=== PATIENT | female | born 2005 | race Caucasian/White ===

== ENCOUNTER 2025-01-18 16:47 | Emergency (ER) | payer BC, SELFPAY ==
--- OUTSIDE RECORDS SUMMARY | 2025-01-18 16:49 | XMS_ITS | Patient Health Record ---
Author Organization [facility] Address [address] [place] [address] Support Name Relationship Address Phone Vesta Dean Guarantor Unknown Allergies No Known Allergies Reason For Referral No Information Medications Medication SIG (Take, Route, Frequency, Duration) Notes Start Date End Date Status Blisovi 24 Fe 1-20 MG-MCG(24) 1 tablet Orally Once a day A ctive Sertraline HCl 25 MG TAKE 1 TABLET BY [facility] EVERY DAY; Duration: 30 Active Social History Tobacco Use: Social History Observation Description Date Details (start date - stop date) Never Smoker NA - NA Sex Assigned At : Social History Observation Description Sex Assigned At Female Dont use, Tobacco Use/Smoking Question Answer Notes Are you a nonsmoker Section Notes: daily marijuana use daily marijuana use Problems Problem Type SNOMED Code ICD Code Onset Dates Problem Status W/U Status Risk Notes Problem Depression (200327828) Depression (F32.9) Active confirmed Problem Anxiety (45864255) Anxiety (F41.9) Active confirmed Plan Of Treatment No Information Insurance Providers Payer Name Payer Address Payer Phone Subscriber Number Group Number Insured Name Patient Relationship to Insured Coverage Start Date Coverage End Date [employer] [facility] Attn Claims Department [address] [place] [address] [phone] [id number] Rafal Deane Self - patient is the insured 3 [facility] Attn Claims Department [address] [place] [address] [phone] [id number] Vesta Dean Self - patient is the insured 3 Medical (General) History Surgical History Surgery Date(Month/Year)
[2025-01-18 16:53] VITALS: BP 166/87; PULSE 121; RESP 16; TEMP 36.8; O2SAT 100
--- NOTE | 2025-01-18 16:55 | ED.LOWEXIN ---
HPI - Extremity Injury (Lower) General Chief Complaint: Skin/Abscess/Foreign Body Stated Complaint: right foot toe pain Time Seen by Provider: 01/18/25 16:55 Source: patient Mode of arrival: ambulatory Limitations: no limitations History of Present Illness HPI Narrative: 19 y/o female presented for c/o 'blister' on the right foot 4th toe for about one month. Endorses tenderness and says it rubs the 5th toe. No treatment. denies redness, swelling or drainage. Reports heart rate and BP are 'always high.' Related Data Home Medications ?Medication ?Instructions ?Recorded ?Confirmed ?Last Taken ?Type No Home Medications 01/18/25 01/18/25 Unknown History Allergies Allergy/AdvReac Type Severity Reaction Status Date / Time No Known Allergies Allergy Verified 01/18/25 16:57 Review of Systems Review of Systems: CONSTITUTIONAL: Denies body aches, fever, chills CARDIOVASCULAR: Denies chest pain, palpitations, or edema. RESPIRATORY: Denies cough or dyspnea. SKIN: reports blister on toe NEUROLOGIC: Denies numbness, tingling, or weakness. All systems reviewed & are unremarkable except as noted in HPI and below PMFSH Comments At time of signature, I have reviewed and agree with nursing past medical, surgical, social and family history unless otherwise noted. Please see nursing chart for further information. There is no relevant family history pertinent to the presenting complaint Exam Narrative: GENERAL: Well-appearing CHEST: Speaks in full sentences. No respiratory distress. HEART: Regular rate and rhythm. Normal and equal peripheral pulses. EXTREMITIES: Right foot 4th toe lateral aspect with skin colored callus c/w corn noted; no surrounding erythema or swelling, no drainage. pulse palpable and equal bilaterally, skin warm, dry, pink. Capillary refill less than 3 seconds. SKIN: Warm, dry, no rash. NEURO: Alert and oriented x3. PSYCH: Normal mood and affect Course Course Emergency Course: Patient is aware of diagnosis, understands and agrees to treatment plan. Anticipatory guidance given. Patient agrees to follow-up as directed and is aware of reasons to seek care at the emergency department. Portions of this record may have been created with voice recognition software Level of Care: Express Care Visit Vital Signs Vital signs: Vital Signs Temperature 98.3 F 01/18/25 16:53 Pulse Rate 121 H 01/18/25 16:53 Respiratory Rate 16 01/18/25 16:53 Blood Pressure 166/87 H 01/18/25 16:53 Pulse Oximetry 100 01/18/25 16:53 Oxygen Delivery Room Air 01/18/25 16:53 Temperature 98.3 F 01/18/25 16:53 Pulse Rate 121 H 01/18/25 16:53 Respiratory Rate 16 01/18/25 16:53 Blood Pressure 166/87 H 01/18/25 16:53 Pulse Oximetry 100 01/18/25 16:53 Oxygen Delivery Room Air 01/18/25 16:53 Reviewed MDM - Extremity Injury (Lower) MDM Narrative Medical decision making narrative: Discussed physical exam findings c/w corn; no surrounding infection noted. Advised supportive measures and signs/symptoms to go to the ER. Pt is appropriate for outpt treatment and f/u. Differential Diagnosis Differential diagnosis: Likely other (abscess, cellulitis, corn, blister) Discharge Plan Discharge Clinical Impression: [place] of toe Patient Disposition: Home Condition: Stable Instructions: Antibiotic Form, Blister (ED) Additional Instructions: for the corn: you can wear felt pads, nonmedicated corn pads or bandages over the area You can also try toe separators or some solano's wool or mole skin between your toes Gently exfoliate with pumice stone carefully follow up with a metal or wood blocker go to the ER for worsening symptoms or concerns Patient Language: Thai Prescriptions: No Action No Home Medications Follow-up/Referrals: PHYSICIAN,ADMITTING INTERVIEWER [Primary Care Provider, Internal Medicine]
== END 2025-01-18 17:11 | disposition home or self-care (01) ==
PROVIDERS: Emergency Provider Nurse Practitioner Family
DX: L84 Corns and callosities (principal)
CPT/HCPCS: 99202; G0463